=== PATIENT | female | born 1955 | race Caucasian/White ===

== ENCOUNTER → 2021-04-22 | Outpatient (CLI) | payer OTHER ==
[~2021-04-22] VITALS: Ht 160 cm; Wt 61.2 kg
[~2021-04-22] MED LIST: CARDIO TAB PO; FISH OIL 1,001000 M2 PO; LEXAPRO 10 MG T10 MG PO; MAGNESIUM250 M1 PO; PROBIOTIC1 EAC1 PO; VITAMIN B12-FO1 EAC1 PO; VITAMIN D310 MC2 PO; VITAMINC500 PO; ZOCOR 10 MG TAB10 M1 PO; ZOCOR 10 MG TAB10 MG PO; ZOVIRAX 5% OINT15 G1 TOP; ZYRTEC10 M4 PO; [UNRECOGNIZED DRUG - OTHER] PO
--- NOTE | ~2021-04-22 | P ---
[facility] [place] [address] PROCEDURE REPORT Name: LOULOU FUENTES Room #: REG [facility]#: [id number] Admission: 04/22/21 Attend Phys: Papo Trimble Discharge: Date of : 55 Report #: [id number] THIS REPORT FOR: cc: LESLEY CHAVEZ Physician not on staff Papo Oakes MD ~ cc: Derek Chavez DATE OF SERVICE: 04/22/2021 PROCEDURE PERFORMED: Upper endoscopy with biopsies. HISTORY OF PRESENT ILLNESS: The patient is a 66-year-old female who was seen by myself in the office on 03/17/2021 with complaints of abdominal bloating. She has tried simethicone without much improvement. She has not been tested for celiac disease. She has tried a FODMAP diet without much improvement as well. No previous history of upper endoscopy. She does report mild heartburn at times. She denies any dysphagia. Plan is for EGD. DESCRIPTION OF PROCEDURE: The risks and benefits of the procedure were explained to the patient, those risks including but not limited to bleeding, perforation and the risk of sedation. She understood these risks and gave informed consent. Sedation was given using propofol per Anesthesia. Next, using a standard Olympus upper endoscope, the scope was placed in the patient's mouth and advanced under direct vision through the esophagus, stomach and into the second portion of the duodenum. The upper and mid esophagus were normal. In the distal esophagus, a possible short segment of Pruett's was noted. Biopsies were obtained. Grade A erosive esophagitis was also seen. Upon entering the stomach, a small hiatal hernia was noted. Overall, the gastric mucosa was normal. Biopsies were obtained to rule out H. pylori. The pylorus was normal and patent. The duodenal bulb, first and second portion were all normal. Biopsies were obtained to rule out the possibilities celiac sprue. The scope was then withdrawn and the procedure terminated. The patient tolerated the procedure well. IMPRESSION: 1. Grade A erosive esophagitis. 2. 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 3. Small hiatal hernia. 4. Otherwise, normal upper endoscopy. RECOMMENDATIONS: 1. Await biopsy results. 2. We will start a trial of daily PPI therapy. [address] [address] PROCEDURE REPORT Name[facility] Room #: REG JASPER Witt#: [id number] Admission: 04/22/21 Attend Phys: Papo Trimble Discharge: Date of : 55 Report #: [id number] Thank you for allowing me to participate in her care. By: [id number] Papo Oakes MD /nt
--- NOTE | 2021-04-26 12:07 | PATH ---
[facility] [place] [address] PATHOLOGY RPT PROCEDURE Name: LOULOU LEONARD Room #: REG JASPER Rodriguez.#: [id number] Admission: 04/22/21 Date of : 55 Discharge: Report #: [id number] Path Case #: [id number] [facility] Accession Number: [id number] . 01 Material submitted: . PART A: duodenum - DUODENAL BIOPSY R/O TROPICAL SPUR PART B: gastrointestinal site - GASTRIC BIOPSY R/O H. PYLORI PART C: esophagus - DISTAL ESOPHAGUS R/O WEAVER'S. Modifiers: distal . 01 Clinical history: . ESOPHAGOGASTRODUODENOSCOPY ABDOMINAL BLOATING . 01 Diagnosis: A. Duodenum, "duodenal biopsy, rule out sprue": - Benign fragment of duodenal mucosa with no obvious diagnostic changes of sprue or inflammatory bowel disease. . B. Gastric biopsy, "gastric biopsy, rule out H. pylori": - Mild chronic reactive gastropathy. - There is no evidence of atypia or malignancy. - The immunoperoxidase stain for Helicobacter pylori is negative. The control worked appropriately. . C. Squamous and glandular mucosa, "distal esophageal biopsy, rule out Weaver's": - Reflux esophagitis with reactive squamous and glandular mucosa. - There is no evidence of goblet cell metaplasia, dysplasia or malignancy. . (SHA:harman; 04/25/2021) MBR 04/25/2021 1401 Local . 01 Electronically signed: . Uriel Moulton MD, Pathologist NPI- [id number] . 01 Gross description: . A. The specimen is received in formalin, labeled "AishaLoulou, duodenal biopsy r/O tropical spur" and consists of 3 barton irregular tissues aggregating 0.8 x 0.5 x 0.2 cm which are submitted in toto in A1. . B. The specimen is received in formalin, labeled "Loulou Leonard, gastric biopsy R/O H. pylori" and consists of 3 barton irregular tissues aggregating 0.7 x 0.5 x 0.2 cm which are submitted in toto in B1. . C. The specimen is received in formalin, labeled "Bhartiami, Loulou, distal esophagus R/O Weaver's" and consists of 3 barton irregular tissues [address] [address] PATHOLOGY RPT PROCEDURE [facility] Room #: REG CLWilliam Witt#: [id number] Admission: 04/22/21 Date of : 55 Discharge: Report #: [id number] Path Case #: [id number] aggregating 0.4 x 0.4 x 0.1 cm which are filtered and submitted in toto in C1.([place]; 04/22/2021) DKA/DKA 04/22/2021 1528 Local . 01 Pathologist provided ICD-10: K31.9, K21.00 . 01 CPT . 857348, 583702, 927055, [id number] Specimen Comment: A courtesy copy of this report has been sent to [phone], [phone] Specimen Comment: [phone] Specimen Comment: Report sent to / DR LYONS Specimen Comment: A duplicate report has been generated due to demographic updates. Performed at: [address] [facility] [address] [id number] MD Uriel Moulton MD Phone: [phone]
== END | disposition home or self-care (01) ==
LOC: GI 08:12
PROVIDERS: ATTEND Specialist
DX: R14.0 Abdominal distension (gaseous) (principal); K31.9 Disease of stomach and duodenum, unspecified; R12 Heartburn; K21.00 Gastro-esophageal reflux disease with esophagitis, without bleeding; K44.9 Diaphragmatic hernia without obstruction or gangrene; Z98.890 Other specified postprocedural states; Z79.899 Other long term (current) drug therapy; Z87.891 Personal history of nicotine dependence; Z20.822 Contact with and (suspected) exposure to COVID-19
CPT/HCPCS: 62110; 62900